=== PATIENT | male | born 1985 | race Caucasian/White ===

== ENCOUNTER 2018-03-24 20:26 | Emergency (ER) | payer OTHER ==
[2018-03-24] MEDS ORDERED: ASPIRIN 81 MG CHEW TAB PO ONE (20:28)
[2018-03-24] MEDS ORDERED: 0.9 % SODIUM CHLORIDE 1,000 ML IV ONE (20:32)
[2018-03-24] MEDS ORDERED: ASPIRIN 81 MG CHEW TAB ONE (20:35)
[2018-03-24 20:54] LABS: MEAN CORPUSCULAR HEMOGLOBIN 31.4 pg (28.0-34.0)
[2018-03-24 20:55] LABS: BASOPHILS % 0.3 (0.0-1.5); EOSINOPHILS % 2.6 % (0.0-6.8); NEUTROPHILS # 4.4 # k/uL (1.4-7.7)
[2018-03-24 20:58] LABS: eGFR (Non-African) > 60
--- NOTE | 2018-03-24 22:05 | ED Physician Documentation ---
General Adult - HISTORIAN Historian: patient - HPI Stated Complaint: altered mental status Chief Complaint: General Adult Additional Information: pt presents to the ED via EMS c/o syncopal episode. pt patron at local [facility] and did not eat dinner. he became weak and diaphoretic and had a brief syncopal episode with blood glucose in the 80s. pt was given oral glucose, narcan and transported to the ED. pt denies current chest pain, dyspnea, syncope/near syncope, headache, dizziness, visual disturbances, n/v/d, fever/chills, rash, sick contacts, dysuria, trauma. melena or hematochezia, bleeding or easy bruising, change in b owel or bladder function, no recent weight loss/gain, anxiety or depression. ROS Negative unless otherwise specified. During the ED stay pt remained a/ox 3 skin pwd eupneic. pt given peanut butter a nd crackers and cola (no OJ or other juices available) 2340. pt poc blood sugar 86. Protein and sandwich given just prior to discharge. - ROS CONST: sweating, weakness EYES/ENT: denies: problems with vision, sore throat, nasal drainage, nasal congestion CVS/RESP: denies: chest pain, shortness of breath, cough GI/: denies: abdominal pain, problems urinating, vomiting, nausea, diarrhea, black stools MS/SKIN/LYMPH: denies: calf pain, neck pain, joint pain, leg swelling, rash, swollen glands, leg pain, back pain, ankle swelling NEURO/PSYCH: fainting. denies: headache, dizziness, tingling, numbness, difficulty walking, difficulty with speech, anxiety, depression - PAST HX Past History: other (graves disease) Other History: none Allergies/Adverse Reactions: Allergies Allergy/AdvReac Type Severity Reaction Status Date / Time cefaclor [From [facility]] Allergy Hives Verified 03/24/18 20:56 Home Medications: Ambulatory Orders Medication Instructions Recorded Methimazole [Northyx] 20 mg PO TID 03/24/18 Metoprolol Tartrate [Lopressor] 25 mg PO BID 03/24/18 - SOCIAL HX Smoking History: less than 1 pack/day Alcohol Use: none Drug Use: heroin - FAMILY HX Family History: No - VITAL SIGNS Vital Signs: Vital Signs Temp Pulse Resp BP Pulse Ox 98.7 F 90 19 160/83 97 03/24/18 20:26 03/24/18 21:30 03/24/18 20:26 03/24/18 20:26 03/24/18 21:30 - REVIEWED ASSESSMENTS Nursing Assessment Reviewed: Yes Vitals Reviewed: Yes Progress - EKG/XRAY/CT EKG: NSR, no ST T wave changes ED Results Lab/Radiology - Lab Results Lab Results: Lab Results 03/24/18 03/24/18 03/24/18 20:30 20:30 20:30 WBC 6.60 K/ul K/ul (4.00-12.00) RBC 4.69 M/ul M/ul (3.90-5.20) Hgb 14.7 g/dL g/dL (12.0-18.0) Hct 43.8 % % (37.0-53.0) MCV 93.0 fl fl (80.0-100.0) MCH 31.4 pg pg (28.0-34.0) MCHC 33.6 g/dL g/dL (30.0-36.0) RDW 12.9 % % (11.3-14.3) Plt Count 224 K/mm3 K/mm3 (130-400) Neut % (Auto) 65.4 % % (39.0-79.0) Lymph % (Auto) 24.7 % % (16.0-50.0) Carlisle % (Auto) 7.0 % % (0.0-11.0) Eos % (Auto) 2.6 % % (0.0-6.8) Baso % (Auto) 0.3 (0.0-1.5) Neut # (Auto) 4.4 # k/uL # k/uL (1.4-7.7) Lymph # (Auto) 1.6 # k/uL # k/uL (0.6-4.0) Carlisle # (Auto) 0.5 # k/uL # k/uL (0.0-0.9) Eos # (Auto) 0.2 # k/uL # k/uL (0.0-0.6) Baso # (Auto) 0.0 # k/uL # k/uL (0.0-0.5) Sodium 139 mmol/L mmol/L (136-145) Potassium 4.2 mmol/L mmol/L (3.5-5.1) Chloride 107 mmol/L mmol/L (98-107) Carbon Dioxide 25 mmol/L mmol/L (22-30) BUN 10 mg/dL mg/dL (9-20) Creatinine 1.00 mg/dL mg/dL (0.66-1.25) Estimated Creat Clear 130 Est GFR ( Amer) > 60 (60 - ) Est GFR (Non-Af Amer) > 60 (60 - ) Glucose 85 mg/dL mg/dL (74-106) Calcium 8.6 mg/dL mg/dL (8.4-10.2) Total Bilirubin 0.5 mg/dL mg/dL (0.2-1.3) AST 36 U/L U/L (15-46) ALT 37 U/L U/L (13-69) Alkaline Phosphatase 111 U/L U/L (38-126) Troponin I < 0.03 ng/mL L ng/mL (0.03-0.06) Total Protein 7.6 g/dL g/dL (6.3-8.2) Albumin 4.6 g/dL g/dL (3.5-5.0) - Radiology Radiology Impressions: Report Submission Date: Mar 24, 2018 9:09:53 PM [employer]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 The lungs are clear. There is no pleural effusion or pneumothorax. Osseous structures are unremarkable. Impression: Normal. Electronically signed on Mar 24, 2018 9:09:53 PM WHOLESALE AND RETAIL MERCHANT by: Demetrio Fernandez Report Submission Date: Mar 24, 2018 9:09:18 PM [employer] MERCHANT Patient Study Name: SHRUTHI STERLING W Date: Mar 24, 2018 8:48:09 PM [employer] RETAIL MERCHANT Modality Type: CT\SR Gender: M Description: CT C-SPINE W/O CONTRAS : 87 Institution: [facility] Physician: NILS TIM Computed tomography cervical spine without contrast History: Syncope and fall Findings: Transverse cervical spine sections are obtained without contrast. The cervical spine is intact without fracture, disc space narrowing, subluxation, or paraspinal swelling. Impression: Intact cervical spine. Electronically signed on Mar 24, 2018 9:09:18 PM WHOLESALE AND RETAIL MERCHANT by: Demetrio Fernandez Report Submission Date: Mar 24, 2018 9:07:21 PM [employer] MERCHANT Patient Study Name: SHRUTHI STERLING Date: Mar 24, 2018 8:45:53 PM [employer] MERCHANT Modality Type: CT\SR Gender: M Description: CT BRAIN W/O CONTRAST : 87 Institution: [facility] Physician: NILS TIM Computed tomography head without contrast History: Syncope and fall Findings: Transverse brain sections are obtained without contrast reveal normal sized ventricles and sulci. Grover-white differentiation is intact. There is no intracranial hemorrhage, mass effect, fluid collection, or skull fracture. Impression: Intact brain and skull. Electronically signed on Mar 24, 2018 9:07:21 PM WHOLESALE AND RETAIL MERCHANT by: Demetrio Fernandez - Orders Orders: ED Orders Category Date Time Status Continuous EKG monitoring Q30M Care 03/24/18 20:28 Active Continuous Pulse Oximetry Q30M Care 03/24/18 20:[address] IV Lock 1T Care 03/24/18 20:28 Active CHEST 1VIEW [RAD] Stat Exams 03/24/[address] BRAIN W/O CONTRAST Stat Exams 03/24/[address] C-SPINE W/O CONTRAST Stat Exams 03/24/18 Ordered CBC/PLATELET/DIFF Routine Lab 03/24/18 20:30 Completed CMP Routine Lab 03/24/18 20:30 Completed TROPONIN I (cTnI) Stat Lab 03/24/18 20:30 Completed 0.9 % Sodium Chloride [Normal Saline] 1,000 ml Med 03/24/18 20:32 Discontinued IV NOW Aspirin Med 03/24/18 20:35 Discontinued 324 mg .ROUTE .STK-MED ONE Aspirin Med 03/24/18 20:28 Discontinued 324 mg PO NOW ONE EKG WITH COMPARISON Stat Ther 03/24/18 20:28 Ordered General Adult Physical Exam - PHYSICAL EXAM GENERAL APPEARANCE: mild distress EENT: eye inspection normal, ENT inspection normal, pharynx normal, no signs of dehydration, GOLDIE, no nystagmus, TM's nml NECK: normal inspection, thyroid normal. 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 increase fluids like gatoraid or other electrolyte replacement. do not do drugs or you will or end up in a halfway in a semi or fully vegetative state. seek medical care immediately if difficult to wake or weakness, difficulty breathing, feeling faint or fainting, increased rash, chest pain, shortness of breath, or fever not controlled by tylenol/motrin or any concern. PLEASE UNDERSTAND THAT THIS IS AN EMERGENCY EVALUATION FOR YOUR COMPLAINT AND BY NATURE IS LIMITED AND NOT A SUBSTITUTE FOR ONGOING MEDICAL CARE. EVEN THOUGH TEST RESULTS AND TREATMENT PLAN WERE EXPLAINED THERE MAY BE A NEED FOR ADDITIONAL TESTING TO FULLY DETERMINE THE EXTENT OF YOUR ILLNESS/INJURY/OR CONCERN SO YOU SHOULD CONTACT AND OR ESTABLISH WITH A PRIMARY CARE PROVIDER (OR REFERRAL DOCTOR IF APPLICABLE) FOR AN APPOINTMENT SOON POSSIBLE Condition: Good Disposition: 01 HOME, SELF-CARE Decision to Admit: NO Date of Decison to Admit: 03/24/18 Decision Time: 23:46
[2018-03-24 22:11] LABS: APPEARANCE,URINE CLEAR (CLEAR); COLOR,URINE YELLOW (YELLOW)
[2018-03-24 22:12] LABS: OCCULT BLOOD,URINE NEGATIVE (NEGATIVE); PH URINE 5.5 (5.0 - 8.0); UROBILINOGEN URINE 0.2 Eu (0.2-1.0)
[2018-03-24 22:13] LABS: CANNABINOIDS NEGATIVE ng/mL (< 50); METHYLENEDIOXYMETHAMPHETAMINE NEGATIVE ng/mL (<500)
[2018-03-25 00:13] VITALS: BP 117/85
--- NOTE | 2018-03-25 05:40 | Diagnostic Imaging Report ---
NILS TIM [facility] [id number] [facility] [address] [place] [address]. 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 The lungs are clear. There is no pleural effusion or pneumothorax. Osseous structures are unremarkable. Impression: Normal. Electronically signed on Mar 24, 2018 9:09:53 PM G[employer] REGISTRATION SPECIALIST by: Demetrio MCLAIN
--- NOTE | 2018-03-25 05:41 | Diagnostic Imaging Report ---
NILS TIM [facility] [address] [facility] [address] [place] [address]. [id number] Report Submission Date: Mar 24, 2018 9:07:21 PM TRANSONIC ENGINEER Patient Study Name: SHRUTHI STERLING Date: Mar 24, 2018 8:45:53 PM TRANSONIC ENGINEER Modality Type: CT\SR Gender: M Description: CT BRAIN W/O CONTRAST : 87 Institution: [facility] Physician: NILS TIM Computed tomography head without contrast History: Syncope and fall Findings: Transverse brain sections are obtained without contrast reveal normal sized ventricles and sulci. Grover-white differentiation is intact. There is no intracranial hemorrhage, mass effect, fluid collection, or skull fracture. Impression: Intact brain and skull. Electronically signed on Mar 24, 2018 9:07:21 PM TRANSONIC ENGINEER by: Demetrio MCLAIN
--- NOTE | 2018-03-25 05:41 | Diagnostic Imaging Report ---
NILS TIM [facility] [address] [facility] [address] [place] [address]. [id number] Report Submission Date: Mar 24, 2018 9:09:18 PM HAM FACER Patient Study Name: SHRUTHI STERLING Date: Mar 24, 2018 8:48:09 PM HAM FACER Modality Type: CT\SR Gender: M Description: CT C-SPINE W/O CONTRAS : 87 Institution: [facility] Physician: NILS TIM Computed tomography cervical spine without contrast History: Syncope and fall Findings: Transverse cervical spine sections are obtained without contrast. The cervical spine is intact without fracture, disc space narrowing, subluxation, or paraspinal swelling. Impression: Intact cervical spine. Electronically signed on Mar 24, 2018 9:09:18 PM HAM FACER by: Demetrio MCLAIN
== END 2018-03-25 00:09 | disposition home or self-care (01) ==
LOC: ED 20:26
DX: E16.2 Hypoglycemia, unspecified (principal)
CPT/HCPCS: 36415; 70450; 71045; 72125; 80053; 80377; 81002; 84484; 85025; 93005; 99283; 99285; J7030; G0481; S1016